=== PATIENT | male | born 1955 | race Two or more races ===

== ENCOUNTER → 2022-06-12 | Outpatient (CLI) | payer OTHER | END | disposition home or self-care (01) | LOC: XYW 08:51 | DX: K80.20 Calculus of gallbladder without cholecystitis without obstruction (principal); N42.89 Other specified disorders of prostate; I70.0 Atherosclerosis of aorta; M47.819 Spondylosis without myelopathy or radiculopathy, site unspecified | CPT/HCPCS: 74176 ==